=== PATIENT | male | born 1965 | race American Indian/Alaskan Native ===

== ENCOUNTER 2016-12-31 13:12 | Emergency (ER) | payer MEDICAID, OTHER ==
[2016-12-31 13:13] VITALS: BMI 27.3
[2016-12-31 13:21] VITALS: RESP 20
--- NOTE | 2016-12-31 15:13 | RAD ---
PROCEDURE: Left Knee Radiographs. HISTORY: Pain. COMPARISON: None. FINDINGS: BONES: . No fracture. Tiny patellar spurs present JOINTS: Minimal osteoarthritis -patellofemoral compartment. JOINT EFFUSION: Present OTHER FINDINGS: None. IMPRESSION: No fracture or dislocation. Suprapatellar joint effusion. Minimal osteoarthrosis patellofemoral compartment
[2016-12-31 15:36] VITALS: BP 120/80; PULSE 66; TEMP 97.7; O2SAT 100
--- NOTE | 2016-12-31 17:49 | C.PDOC ---
History Of Present Illness 51 year old male presents to the ED with complaints left knee pain for one year. Patient states he injured his knee one year ago while working and did not seek medical treatment. He denies weakness, numbness, or recent trauma or fall. Chief Complaint (Nursing): Lower Extremity Problem/Injury History Per: Patient History/Exam Limitations: no limitations Onset/Duration Of Symptoms: Persistent (1 year) Current Symptoms Are (Timing): Still Present Recent travel outside of the [place]: No Past Medical History Reviewed: Historical Data, Nursing Documentation, Vital Signs Vital Signs: Last Vital Signs Temp 97.7 F 12/31/16 15:35 Pulse 66 12/31/16 15:35 Resp 20 12/31/16 15:35 BP 120/80 12/31/16 15:35 Pulse Ox 100 12/31/16 17:51 Surgical History: Hernia Repair Family History: States: Unknown Family Hx - Social History Hx Tobacco Use: No Hx Alcohol Use: No Hx Substance Use: No Review Of Systems Musculoskeletal: Positive for: Leg Pain (left knee pain ) Neurological: Negative for: Weakness, Numbness Physical Exam - Physical Exam Appears: Non-toxic, No Acute Distress Skin: Warm, Dry Extremity: Normal ROM (crepitus noted with ROM ), No Tenderness, No Calf Tenderness, Capillary Refill (good capillary refill, less than two seconds ), Swelling (chronic swelling ) Pulses: Left Dorsalis Pedis: Normal, Right Dorsalis Pedis: Normal Neurological/Psych: Oriented x3, Normal Motor, Normal Sensation ED Course And Treatment O2 Sat by Pulse Oximetry: 100 (RA) - Other Rad Left Knee X-Ray X-Ray: Viewed By Me, Read By Radiologist Interpretation: JOINTS: Minimal osteoarthritis -patellofemoral compartment. JOINT EFFUSION: Present. OTHER FINDINGS: None. IMPRESSION: No fracture or dislocation. Suprapatellar joint effusion. Minimal osteoarthrosis patellofemoral compartment Progress Note: Left knee X-Ray was ordered and patient was given Motrin. Patient instructed to follow up with clinic. Disposition - Disposition Referrals: [facility] [Outside] [facility] [Outside] Disposition: HOME/ ROUTINE Disposition Time: 15:00 Condition: GOOD Additional Instructions: Thank you for letting us take care of you today. Your provider was Dr. Lin. You were treated for knee pain. The emergency medical care you received today was directed at your acute symptoms. If you were prescribed any medication, please fill it and take as directed. It may take several days for your symptoms to resolve. Return to the Emergency Department if your symptoms worsen, do not improve, or if you have any other problems. Please contact your doctor or call one of the physicians/clinics you have been referred to that are listed on the Patient Visit Information form that is included in your discharge packet. Bring any paperwork you were given at discharge with you along with any medications you are taking to your follow up visit. Our treatment cannot replace ongoing medical care by a primary care provider (PCP) outside of the emergency department. Thank you for allowing the [facility] team to be part of your care today. Follow up with the clinic in 3-5 days for re-evaluation and further management. Prescriptions: Ibuprofen [Motrin] 800 mg PO Q6 PRN #20 tab PRN Reason: Pain, Moderate (4-7) Instructions: Swollen Knee Joint (ED) Forms: [employer] (Italian) - Clinical Impression Clinical Impression: Knee pain - Scribe Statement The provider has reviewed the documentation as recorded by the Scribe Odilia Alejo All medical record entries made by the Scribe were at my direction and personally dictated by me. I have reviewed the chart and agree that the record accurately reflects my personal performance of the history, physical exam, medical decision making, and the department course for this patient. I have also personally directed, reviewed, and agree with the discharge instructions and disposition.
== END 2016-12-31 15:36 | disposition home or self-care (01) ==
LOC: C.ER 13:12
DX: M25.562 Pain in left knee (principal)

== ENCOUNTER 2017-01-14 16:46 | Emergency (ER) | payer MEDICAID, OTHER ==
[2017-01-14 16:46] VITALS: BMI 27.3
[2017-01-14 17:12] VITALS: RESP 18
--- NOTE | 2017-01-14 18:42 | C.PDOC ---
History Of Present Illness 51 y/o male c/o left knee pain for more than a year, seen in this ed on 12/31 with knee xray showing suprapatellar effusion and some arthritis. no new injury. pt has not followed up with ortho, c/o persistent pain. pt takes nsaids occasionally, no fever or chills. Time Seen by Provider: 01/14/17 17:25 Chief Complaint (Nursing): Lower Extremity Problem/Injury History Per: Patient History/Exam Limitations: no limitations Onset/Duration Of Symptoms: Days Current Symptoms Are (Timing): Still Present Severity: Moderate Pain Scale Rating Of: 7 Past Medical History Reviewed: Historical Data, Nursing Documentation, Vital Signs Vital Signs: Last Vital Signs Temp 98.6 F 01/14/17 18:52 Pulse 84 01/14/17 18:52 Resp 18 01/14/17 18:52 BP 118/76 01/14/17 18:52 Pulse Ox 98 01/14/17 18:52 - Medical History PMH: Arthritis Surgical History: Hernia Repair Family History: States: Unknown Family Hx - Social History Hx Tobacco Use: No Hx Alcohol Use: No Hx Substance Use: No - Immunization History Hx Tetanus Toxoid Vaccination: No Hx Influenza Vaccination: No Hx Pneumococcal Vaccination: No Review Of Systems Constitutional: Negative for: Fever, Chills Cardiovascular: Negative for: Chest Pain Gastrointestinal: Negative for: Abdominal Pain Musculoskeletal: Positive for: Other (knee pain left) Skin: Negative for: Rash, Bruising Neurological: Negative for: Weakness, Numbness Physical Exam - Physical Exam Appears: Non-toxic, No Acute Distress Skin: Warm, Dry Extremity: Left: Other (mild swelling to medial upper knee, able to extend, almost fully flex; knee not erythematous or warm. ) Pulses: Left Dorsalis Pedis: Normal, Right Dorsalis Pedis: Normal Neurological/Psych: Oriented x3, Normal Speech, Normal Cognition, Normal Motor, Normal Sensation ED Course And Treatment O2 Sat by Pulse Oximetry: 97 Disposition Counseled Patient/Family Regarding: Diagnosis, Need For Followup, Rx Given - Disposition Referrals: [facility] at [place] [Outside] [facility] [Outside] Disposition: HOME/ ROUTINE Disposition Time: 18:43 Condition: STABLE Additional Instructions: Javier bandage for support. Ibuprofen for pain. Cold compresses for 20 minutes every few hours. FOllow up with ortho and med clinic. Prescriptions: Acetaminophen [Tylenol 325mg tab] 650 mg PO Q6 #30 tab Forms: [facility] (Armenian), General Discharge Instructions - Clinical Impression Clinical Impression: Swelling of knee joint, left
[2017-01-14 18:53] VITALS: BP 118/76; PULSE 84; TEMP 98.6
[2017-01-14 22:05] VITALS: O2SAT 97
== END 2017-01-14 18:54 | disposition home or self-care (01) ==
LOC: C.ER 16:46
DX: M25.462 Effusion, left knee (principal)

== ENCOUNTER 2018-04-04 11:43 | Emergency (ER) | payer MEDICAID, OTHER ==
[2018-04-04 11:43] VITALS: BMI 27.3
[2018-04-04] MEDS ORDERED: Sodium Chloride 0.9% 1,000 ML IV ONE (12:54)
[2018-04-04 13:11] LABS: BASO # 0.1 K/uL (0.0-0.2); BASO % 0.8 % (0.0-2.0); EOS # 0.1 K/uL (0.0-0.7); HEMOGLOBIN 14.8 g/dL (12.0-18.0); LYMPH # 2.4 K/uL (1.0-4.3); LYMPH % 35.1 % (20.0-40.0); MEAN CORPUSCULAR HEMOGLOBIN 29.4 pg (27.0-31.0); MEAN CORPUSCULAR HGB CONC 33.8 g/dL (33.0-37.0); MEAN PLATELET VOLUME 8.9 fL (7.2-11.7); MONO # 0.5 K/uL (0.0-0.8); MONO % 7.2 % (0.0-10.0); NEUT # 3.8 K/uL (1.8-7.0); NEUT % 54.9 % (50.0-75.0); RBC 5.04 Mil/uL (4.40-5.90); RED CELL DISTRIBUTION WIDTH 13.7 % (11.5-14.5); WHITE BLOOD COUNT 6.9 K/uL (4.8-10.8)
[2018-04-04 13:20] LABS: INR 1.1; PROTHROMBIN TIME 12.3 SECONDS (9.7-12.2)
--- NOTE | 2018-04-04 13:21 | C.PDOC ---
History Of Present Illness 52 y/o male presents to the ER complaining of abdominal pain which has been present for the past 1 month. has had this "problem forever" Patient states that he has "acid in stomach going up to his throat." Denies having fever, chills, nausea, and vomiting. in the er in nad. Time Seen by Provider: 04/04/18 12:46 Chief Complaint (Nursing): Abdominal Pain History Per: Patient History/Exam Limitations: no limitations Onset/Duration Of Symptoms: Days Current Symptoms Are (Timing): Still Present Severity: Moderate Past Medical History Reviewed: Historical Data, Nursing Documentation, Vital Signs Vital Signs: Last Vital Signs Temp 98.1 F 04/04/18 11:52 Pulse 72 04/04/18 11:52 Resp 16 04/04/18 11:52 BP 154/101 H 04/04/18 11:52 Pulse Ox 97 04/04/18 11:52 - Medical History PMH: Arthritis Surgical History: Hernia Repair Family History: States: No Known Family Hx - Social History Hx Tobacco Use: No Hx Alcohol Use: No Hx Substance Use: No - Immunization History Hx Tetanus Toxoid Vaccination: No Hx Influenza Vaccination: No Hx Pneumococcal Vaccination: No Review Of Systems Except As Marked, All Systems Reviewed And Found Negative. Constitutional: Negative for: Fever, Chills Gastrointestinal: Positive for: Abdominal Pain. Negative for: Nausea, Vomiting Physical Exam - Physical Exam Appears: Non-toxic, No Acute Distress Skin: Normal Color, Warm, Dry Head: Atraumatic, Normacephalic Eye(s): bilateral: Normal Inspection Nose: Normal Oral Mucosa: Moist Throat: Normal, No Erythema, No Exudate Neck: Supple Chest: Symmetrical Cardiovascular: Rhythm Regular Respiratory: Normal Breath Sounds, No Rales, No Rhonchi, No Wheezing Gastrointestinal/Abdominal: Soft, Tenderness (minimal epigastric tenderness), No Guarding, No Rebound Neurological/Psych: Oriented x3, Normal Speech ED Course And Treatment - Laboratory Results Result Diagrams: 04/04/18 13:02 04/04/18 13:02 O2 Sat by Pulse Oximetry: 97 (RA) Pulse Ox Interpretation: Normal Medical Decision Making Medical Decision Making: Plan: --Labs --UA --Protonix IV --Zofran IV --IV Fluids Disposition - Disposition Referrals: [facility] [Outside] [facility] [Outside] [facility] [Outside] Disposition: HOME/ ROUTINE Disposition Time: 14:00 Condition: STABLE Additional Instructions: please see specialist. you will need further testing as an outpatient. return to any er with worsening. Prescriptions: Pantoprazole Sodium [Protonix] 40 mg PO DAILY #20 ect Instructions: Acute Abdomen (Belly Pain) Forms: [facility] (Romanian) - Clinical Impression Clinical Impression: Abdominal pain - Scribe Statement The provider has reviewed the documentation as recorded by the Desiibkenzie Austin Provider Attestation: All medical record entries made by the Desiibe were at my direction and personally dictated by me. I have reviewed the chart and agree that the record accurately reflects my personal performance of the history, physical exam, medical decision making, and the department course for this patient. I have also personally directed, reviewed, and agree with the discharge instructions and disposition.
[2018-04-04 13:23] LABS: URINE BILIRUBIN NEGATIVE (NEGATIVE); URINE BLOOD NEGATIVE (NEGATIVE); URINE CLARITY Clear (Clear); URINE COLOR Yellow (YELLOW); URINE GLUCOSE (UA) NORMAL (Normal); URINE LEUKOCYTE ESTERASE NEG Leu/uL (Negative); URINE PROTEIN NEGATIVE (NEGATIVE); URINE UROBILINOGEN NORMAL mg/dL (0.2-1.0)
[2018-04-04 13:25] LABS: ALB/GLOB RATIO 1.5 (1.0-2.1); ALBUMIN 4.3 g/dL (3.5-5.0); ALT/SGPT 30 U/L (21-72); AST/SGOT 28 U/L (17-59); BILIRUBIN,DIRECT 0.4 mg/dL (0.0-0.4); BLOOD UREA NITROGEN 11 mg/dL (9-20); CALCIUM 9.2 mg/dl (8.6-10.4); GFR NON-AFRICAN AMERICAN > 60; LIPASE 86 U/L (23-300)
[2018-04-04 14:06] VITALS: BP 145/89; PULSE 60; RESP 20; TEMP 97.5
[2018-04-04 15:56] VITALS: O2SAT 97
== END 2018-04-04 14:05 | disposition home or self-care (01) ==
LOC: C.ER 11:43
DX: R10.13 Epigastric pain (principal)
CPT/HCPCS: 80053; 81001; 82248; 83690; 85025; 85610; 85730; 96361; 96374; 96375; 99285; C9113; J2405; J7030